=== PATIENT | female | born 1955 | race Caucasian/White ===

== ENCOUNTER → 2019-09-20 | Outpatient (CLI) | payer MEDICARE ==
[~2019-09-20] VITALS: Ht 165.1 cm; Wt 64.0 kg
[2019-09-20 13:31] VITALS: BP 130/69
== END | disposition home or self-care (01) ==
LOC: SRCNTR 12:39
PROVIDERS: ATTEND Internal Medicine Critical Care Medicine
DX: J45.901 Unspecified asthma with (acute) exacerbation (principal); E06.3 Autoimmune thyroiditis; F41.9 Anxiety disorder, unspecified
CPT/HCPCS: G0463